=== PATIENT | male | born 1995 | race Two or more races ===

== ENCOUNTER 2016-06-17 12:08 | Emergency (ER) | payer OTHER ==
[~2016-06-17 12:08] MED LIST: DICL50 PO
[2016-06-17 12:10] VITALS: BP 119/68; PULSE 76; RESP 18; TEMP 98.6; O2SAT 98
[2016-06-17] MEDS ORDERED: ROBA500T PO (12:15)
[2016-06-17] MEDS ORDERED: NAPR500T PO (12:15)
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
== END 2016-06-17 12:37 | disposition home or self-care (01) ==
LOC: PHEFT 12:08
DX: M54.6 Pain in thoracic spine (principal); M54.5 Low back pain; V89.2XXA Person injured in unspecified motor-vehicle accident, traffic, initial encounter
CPT/HCPCS: 99283